=== PATIENT | male | born 1965 | race Caucasian/White ===

== ENCOUNTER 2023-02-25 10:41 | Emergency (ER) | payer OTHER ==
[2023-02-25 10:50] VITALS: PULSE 105; RESP 16; TEMP 98.2; BMI 28.8
[2023-02-25] MEDS ORDERED: IBUPROFEN 600 MG TABLET (FP) PO ONE ×2 (12:41→13:26)
[2023-02-25] MEDS ORDERED: ACETAMINOPHEN 500 MG TABLET (FP) PO ONE (12:41)
[2023-02-25] MEDS ORDERED: ACETAMINOPHEN 500 MG TABLET (FP) ONE (13:26)
[2023-02-25 14:42] VITALS: BP 170/90
== END 2023-02-25 14:39 | disposition home or self-care (01) ==
LOC: JER 10:41 → JERFT 10:41
PROC: 2W3TX1Z Immobilization of Left Foot using Splint (ICD-10-PCS; principal; 2023-02-25)
DX: S82.65XA Nondisplaced fracture of lateral malleolus of left fibula, initial encounter for closed fracture (principal); Y04.0XXA Assault by unarmed brawl or fight, initial encounter
CPT/HCPCS: 70450-TC; 73610-TC-LT-FY; 73630-TC-LT; 99284-25

== ENCOUNTER 2023-06-28 12:09 | Emergency (ER) | payer OTHER ==
[2023-06-28 12:23] VITALS: BP 150/97; PULSE 100; RESP 18; TEMP 98.2; BMI 30.5
== END 2023-06-28 14:23 | disposition home or self-care (01) ==
LOC: JERFT 12:09 → JER 12:09 → JERFT 14:23
DX: S92.421A Displaced fracture of distal phalanx of right great toe, initial encounter for closed fracture (principal); W20.8XXA Other cause of strike by thrown, projected or falling object, initial encounter; Y99.0 Civilian activity done for income or pay; Y92.009 Unspecified place in unspecified non-institutional (private) residence as the place of occurrence of the external cause
CPT/HCPCS: 73630-TC-RT-FY; 99283-25

== ENCOUNTER 2024-03-28 10:48 | Emergency (ER) | payer OTHER ==
[2024-03-28 11:06] VITALS: BP 177/89; PULSE 105; RESP 22; TEMP 98.6; BMI 33.9
[2024-03-28] MEDS ORDERED: ACETAMINOPHEN 500 MG TABLET (FP) ONE (11:54)
[2024-03-28] MEDS: ACETAMINOPHEN 500 MG TABLET (FP) PO ONE (11:58)
[2024-03-28 12:49] LABS: BASO % 0.3 % (0-2.0); EOS % 1.8 % (0-4.5); HEMATOCRIT 40.9 % (35.4-49); HEMOGLOBIN 13.9 GM/dL (11.7-16.9); LYMPH % 16.7 % (8-40); MCH 32.4 pg (25.7-33.7); MCHC 34.1 g/dl (32.0-35.9); MEAN CELL VOLUME 94.9 fl (80-96); MEAN PLT VOLUME 6.4 fl (7.5-11.1); MONO % 12.2 % (3.8-10.2); PLATELET COUNT 271 10^3/uL (134-434); RDW 13.6 % (11.9-15.9); WHITE BLOOD COUNT 7.2 K/mm3 (4.0-10.0)
[2024-03-28 12:54] LABS: INR 0.97 (0.83-1.09); PROTHROMBIN TIME (PATIENT) 11.2 SEC (9.7-13.0)
[2024-03-28 12:56] LABS: ACTIVATED PTT 30.5 SECONDS (25.2-36.5)
[2024-03-28 13:07] LABS: POTASSIUM 4.2 mmol/L (3.5-5.1)
[2024-03-28 13:08] LABS: CALCIUM 8.6 mg/dL (8.5-10.1)
[2024-03-28 13:09] LABS: ALBUMIN 3.6 g/dl (3.4-5.0); BLOOD UREA NITROGEN 18.4 mg/dL (7-18)
[2024-03-28 13:11] LABS: URIC ACID 5.5 mg/dL (2.6-7.2)
[2024-03-28 13:12] LABS: CREATININE 0.9 mg/dL (0.55-1.3)
[2024-03-28 13:13] LABS: BILIRUBIN,TOTAL 1.1 mg/dL (0.2-1)
[2024-03-28 13:18] LABS: N-TERMINAL BNP 94.6 pg/ml (5-125)
[2024-03-28 14:03] LABS: HIV INTERPRETATION NEGATIVE (NEGATIVE)
== END 2024-03-28 14:33 | disposition home or self-care (01) ==
LOC: JER 10:48
DX: M17.11 Unilateral primary osteoarthritis, right knee (principal); M25.461 Effusion, right knee
CPT/HCPCS: 36415; 73562-TC-RT-FY; 80053; 83880; 84550; 85025; 85610; 85730; 86803; 87389; 99283-25